=== PATIENT | female | born 1975 | race Caucasian/White ===

== ENCOUNTER 2016-06-26 02:58 | Inpatient (IN) ==
[2016-06-26] MEDS ORDERED: SOLU-MEDROL IV ONE (03:16)
[2016-06-26] MEDS ORDERED: LABETALOL IV ONE ×2 (03:16→04:29)
[2016-06-26] MEDS ORDERED: LABETALOL ONE (03:16)
[2016-06-26] MEDS ORDERED: ALBUTEROL NEB INH ONE ×2 (03:16→04:02)
[2016-06-26] MEDS ORDERED: DUONEB (A & A) INH ONE ×2 (03:16→04:02)
[2016-06-26 03:23] LABS: MANUAL DIFF NEEDED? NO
[2016-06-26 03:43] LABS: AGAP 16; ALBUMIN 4.4 g/dL (3.5-5.0); ALKALINE PHOSPHATASE 105 U/L (32-104); BUN 13 mg/dL (8-22); CALCIUM 9.2 mg/dL (8.8-10.2); CHLORIDE 98 mmol/L (98-107); CK PROFILE 22 U/L (24-173); COSMO 277; GOT 20 U/L (10-30); GPT 11 U/L (10-36); MAGNESIUM 2.3 mg/dL (1.5-2.7); POTASSIUM 3.8 mmol/L (3.5-5.1); SODIUM 136 mmol/L (136-145); TCO2 23 mmol/L (25-35); TOTAL BILIRUBIN < 0.15 mg/dL (0.20-1.00); TOTAL PROTEIN 8.1 g/dL (6.3-8.3)
[2016-06-26 03:51] LABS: BASO% 0.3 % (0.0-0.8); EOS# 0.26 X1000 (0.0-0.7); EOS% 2.2 % (0.0-10.0); HEMATOCRIT 38.3 % (37.0-47.0); HEMOGLOBIN 11.8 g/dL (12.0-16.0); IMM GRAN# 0.02 X1000 (0.0-0.04); IMM GRAN% 0.2 % (0.0-0.5); LYMPH# 2.67 X1000 (1.2-3.4); LYMPH% 22.9 % (20.5-51.1); MCH 24.2 PG (27-31); MCHC 30.8 g/dL (33-37); MCV 78.6 FL (81-99); MONO# 0.61 X1000 (0.11-0.59); MONO% 5.2 % (1.7-9.3); MPV 10.5 FL (7.4-10.4); NEUT% 69.2 % (42.2-75.2); PLT 334 X1000 (130-400); RBC 4.87 XMIL (4.2-5.4)
--- NOTE | 2016-06-26 03:53 | PROVIDER DOCUMENTATION ---
HPI-Respiratory General - General Chief Complaint: Shortness of Breath Stated Complaint: SOB Time Seen by Provider: 06/26/16 03:15 Source: patient Allergies/Adverse Reactions: Patient Allergies Allergy/AdvReac Type Severity Reaction Status Date / Time No Known Allergies Allergy Verified 06/26/16 03:06 Home Medications: Home Medication List Medication Instructions Recorded Confirmed Last Taken Type NK [No Home Medications] 06/26/16 06/26/16 Unknown History - History of Present Illness-Resp Nature of Presenting Problem: pt states that over the last sday or so she has become more SOB than usual. She is coughing but only minimally productive. No fever or chills. No chest pain or nausea. She smokes 2 PPD. Review of Systems - Adult - REVIEW OF SYSTEMS - ADULT Constitutional: reports: fatique. denies: chills, fever Eyes: denies: discharge Ears, Nose, Mouth & Throat: denies: ear pain, sinus problem, throat pain Cardiovascular: denies: chest pain, edema Respiratory: reports: cough, dyspnea on exertion, shortness of breath, wheezing . denies: hemoptysis, pleurisy Gastrointestinal: denies: abdominal pain, diarrhea, nausea, vomiting Genitourinary: denies: dysuria, frequency, flank pain Musculoskeletal: denies: back pain, neck pain Integumentary: denies: rash Neurological: denies: headache/migraines, numbness, paresthesia Psychiatric: reports: no symptoms reported Endocrine: reports: no symptoms reported Hematologic/Lymphatic: reports: no symptoms reported Allergic/Immunologic: reports: no symptoms reported All Other Systems: Reviewed and Negative Past History - Adult - PAST MEDICAL HISTORY-ADULT Review of Records: reports: Old Records Reviewed, Nursing Assessment Review, Medications Reviewed, Social history reviewed & non-contributory. Major Childhood Illnesses: reports: denies history Cardiovascular: reports: denies history Respiratory: reports: denies history Gastrointestinal: reports: denies history Obstetrical/Gynecological: reports: denies history Genitourinary: reports: denies history Musculoskeletal: reports: other fractures, orthopedic injury (previous broken left ankle and broken right arm) Neurological: reports: denies history Endocrine/Immune: reports: denies history Other Conditions: reports: denies history - PRIOR SURGERIES/PROCEDURES Surgical/Procedure History: reports: other (tubal ligation and repair of right ankle) - PRIOR HOSPITALIZATIONS Prior Hospitalizations: reports: none - IMMUNIZATION STATUS Childhood Immunizations: UTD Flu Vaccine: See Nurse Assessment - FAMILY HISTORY Family History: reviewed, not pertinent - SOCIAL HISTORY Smoking: greater than 1 pack/day Living Situation: family Physical Exam-General - PHYSICAL EXAM-ADULT Initial Vital Signs Reviewed: Yes - CONSTITUTIONAL General Appearance: alert, moderate distress (respiratory distress) - EYES Eyes: pink conjunctivae - HEAD, EARS, NOSE, MOUTH & THROAT HENMT: TMs normal, pharynx normal - NECK Neck: non-tender, full range of motion, supple, normal inspection. negative: lymphadenopathy - RESPIRATORY Respiratory: chest non-tender, no pleuratic chest pain, respiratory distress ( mild to moderate), decreased breath sounds, accessory muscle use, wheezing, increased rate. negative: lungs clear, normal breath sounds, no respiratory distress, no accessory muscle use, rales, rhonchi - CARDIOVASCULAR Cardiovascular: regular rate, rhythm, no edema, no gallop, no murmur - GASTROINTESTINAL (ABDOMEN) Abdominal Exam: normal bowel sounds, non tender, soft, no organomegaly, no pulsatile mass - MUSCULOSKELETAL Back Exam: normal inspection, no CVA tenderness, no vertebral tenderness Extremity: normal range of motion, non-tender, normal gait, normal inspection, no pedal edema, no calf tenderness - SKIN Integumentary: normal color, normal turgor, warm/dry - NEUROLOGIC Neurologic: grossly normal, no motor/sensory deficits - PSYCHIATRIC Psych/Mental Status: normal mood/affect, normal thought content, normal thought process, oriented x 3 Progress - PLAN OF CARE/RESULTS Progress/Plan/Lab Results: Vital Signs - 8 hr 06/26/16 03:09 06/26/16 03:25 06/26/16 03:36 Temperature 98 F Pulse Rate 112 H 97 H 93 H Respiratory Rate 17 24 18 Blood Pressure 218/151 194/119 O2 Sat by Pulse Oximetry 84 L 88 L 89 L Laboratory Results - last 24 hr 06/26/16 06/26/16 06/26/16 03:10 03:10 03:10 WBC RBC Hgb Hct MCV MCH MCHC RDW Std Deviation Plt Count MPV Immature Gran % (Auto) Neut % (Auto) Lymph % (Auto) Clark % (Auto) Eos % (Auto) Baso % (Auto) Immature Gran # (Auto) Neut # (Auto) Lymph # (Auto) Clark # (Auto) Eos # (Auto) Baso # (Auto) D-Dimer Specimen Type Sample Site pH pCO2 pO2 HCO3 Base Excess Oxyhemoglobin ABG O2 Sat (Calculated) ABG O2 Saturation ABG Carboxyhemoglobin ABG Methemoglobin Scott Test A-a O2 Difference Total Hemoglobin Lactate Liter Flow Blood Gas Modality FiO2 % Sodium 136 Potassium 3.8 Chloride 98 Carbon Dioxide 23 L Anion Gap 16 BUN 13 Creatinine 0.7 Estimated GFR/1.73 m2 > 60 BUN/Creatinine Ratio 19 Glucose 187 H Calculated Osmolality 277 Calcium 9.2 Magnesium 2.3 Total Bilirubin < 0.15 L AST 20 ALT 11 Alkaline Phosphatase 105 H Creatine Kinase 22 L Troponin T < 0.010 [id number]-Bdlmfooseut Pept 363 H Total Protein 8.1 Albumin 4.4 Globulin 4.0 Albumin/Globulin Ratio 1.0 06/26/16 06/26/16 06/26/16 03:10 03:10 03:39 WBC 11.67 H RBC 4.87 Hgb 11.8 L Hct 38.3 MCV 78.6 L MCH 24.2 L MCHC 30.8 L RDW Std Deviation 17.4 H Plt Count 334 MPV 10.5 H Immature Gran % (Auto) 0.2 Neut % (Auto) 69.2 Lymph % (Auto) 22.9 Clark % (Auto) 5.2 Eos % (Auto) 2.2 Baso % (Auto) 0.3 Immature Gran # (Auto) 0.02 Neut # (Auto) 8.07 H Lymph # (Auto) 2.67 Clark # (Auto) 0.61 H Eos # (Auto) 0.26 Baso # (Auto) 0.04 D-Dimer 0.34 Specimen Type ARTERIAL Sample Site L BRACHIAL pH 7.41 pCO2 38 pO2 51 L HCO3 24.3 Base Excess -0.4 Oxyhemoglobin 82.3 L* ABG O2 Sat (Calculated) 13.4 L ABG O2 Saturation 90.3 L ABG Carboxyhemoglobin 8.10 H* ABG Methemoglobin 0.9 Scott Test NO A-a O2 Difference 158.0 Total Hemoglobin 11.6 Lactate 2.10 Liter Flow 4.0 Blood Gas Modality CANNULA FiO2 % 36.0 Sodium Potassium Chloride Carbon Dioxide Anion Gap BUN Creatinine Estimated GFR/1.73 m2 BUN/Creatinine Ratio Glucose Calculated Osmolality Calcium Magnesium Total Bilirubin AST ALT Alkaline Phosphatase Creatine Kinase Troponin T [id number]-A-[id number] Pept Total Protein Albumin Globulin Albumin/Globulin Ratio Orders Category Date Time Status Oxygen Therapy- ED Nursing DIRECTED Care 06/26/16 03:10 Active Saline Loc NOW Care 06/26/16 03:10 Active CHEST-PORTABLE [RAD] Stat Exams 06/26/16 03:10 Taken ABG [RESP] Routine Lab 06/26/16 03:39 Completed CBC WITH DIFF [HEME] Stat Lab 06/26/16 03:10 Completed CK PROFILE [SP CHEM] Stat Lab 06/26/16 03:10 Completed COMPREHENSIVE METABOLIC PANEL [CHEM] Stat Lab 06/26/16 03:10 Completed Ddimer [D-DIMER PL] [COAG] Stat Lab 06/26/16 03:10 Completed MAGNESIUM [CHEM] Stat Lab 06/26/16 03:10 Completed PRO B-NATRIURETIC PEPTIDE Stat Lab 06/26/16 03:10 Completed TROPONIN T Stat Lab 06/26/16 03:10 Completed Albuterol 2.5MG/Ipratrop 0.5MG [Duoneb (A & A)] Med 06/26/16 03:16 Discontinued 3 ml INH NOW ONE Albuterol 2.5MG/Ipratrop 0.5MG [Duoneb (A & A)] Med 06/26/16 04:02 Discontinued 3 ml INH NOW ONE Albuterol [Albuterol Neb] Med 06/26/16 03:16 Discontinued 5 mg INH NOW ONE Albuterol [Albuterol Neb] Med 06/26/16 04:02 Discontinued 5 mg INH NOW ONE Labetalol Med 06/26/16 03:16 Discontinued 100 mg .ROUTE .STK-MED ONE Labetalol Med 06/26/16 03:16 Discontinued 100 mg IV NOW ONE Methylprednisolone Sod Succ [Solu-Medrol] Med 06/26/16 03:16 Discontinued 125 mg IV NOW ONE Aerosol Treatments Routine Oth 06/26/16 03:16 Completed Aerosol Treatments Routine Oth 06/26/16 04:02 Active Aerosol Treatments Stat Oth 06/26/16 03:16 Completed Aerosol Treatments Stat Oth 06/26/16 04:02 Active EKG [EKG] Stat Ther 06/26/16 03:18 Ordered Result Diagrams: 06/26/16 03:10 06/26/16 03:10 - EKG 1 Time of EKG reading by physician:: 03:20 EKG Interpretation (*Must complete 3 of following elements*): Abnormal Rate: 97 Rhythm: sinus [place]: normal QRS: LVH LA Interval: normal ST Wave: non-specific ST changes Prior EKG Comparison: no prior EKG - XRAY 1 XRAY Study: Chest Impression: Normal Departure - Departure Time of Disposition Decision: 04:12 DIAGNOSIS: COPD exacerbation, Accelerated hypertension Disposition: ADMITTED INPATIENT 09 Certified Medical Emergency: Emergent Condition: Fair Referrals and Follow-Ups: None,PCP [Primary Care Provider] -
[2016-06-26 03:58] LABS: BE -0.4 mmoll (-3.0-3.0); BLOOD TYPE ARTERIAL; DRAW SITE L BRACHIAL; METHB 0.9 % (0.0-1.5); O2(CT) 13.4 mL/dL (15.0-23.0); PCO2(98.6) 38 mmHg (35-45); PO2(98.6) 51 mmHg (60-100); SAMPLE BLOOD; SAO2 90.3 % (95.0-100.0); THB 11.6 g/dL (11.5-17.4); pH(98.6) 7.41 (7.35-7.45)
[2016-06-26 04:05] LABS: ALLEN TEST NO; MODALITY CANNULA
[2016-06-26] MEDS ORDERED: ROCEPHIN 1 GM/NS 1 GM/50 ML IVPB IV ONE (04:13)
[2016-06-26] MEDS ORDERED: MORPHINE IV ONE (04:57)
[2016-06-26] MEDS ORDERED: ZOFRAN IV ONE (04:58)
[2016-06-26] MEDS: DUONEB (A & A) INH SCH ×5 (07:22→23:06)
--- NOTE | 2016-06-26 10:00 | Diag Imaging Result Document ---
PROCEDURE NAME: CHEST-PORTABLE - 06/26/2016 PORTABLE CHEST: COMPARISON: 09/22/2015. FINDINGS: The lungs are well expanded. The heart is not enlarged. The vessels are not distended. Questionable basilar infiltrates. No pleural effusions identified. IMPRESSION: Questionable small basilar infiltrates. Followup PA and lateral recommended.
[2016-06-26] MEDS ORDERED: DUONEB (A & A) INH PRN (12:00)
[2016-06-26] MEDS: PRINIVIL PO SCH ×2 (13:10→21:14)
[2016-06-26] MEDS: TYLENOL PO PRN ×2 (13:19→21:14)
--- NOTE | 2016-06-26 14:41 | Diag Imaging Result Document ---
PROCEDURE NAME: CHEST-2 VIEWS - 06/26/2016 FRONTAL AND LATERAL CHEST, TWO VIEWS: COMPARISON: 06/26/2016. FINDINGS: The lungs are well expanded. Interval clearing of the increased markings in the lung bases on the prior exam consistent with atelectasis. No definite infiltrates. The heart remains borderline mildly prominent. No pleural effusions. IMPRESSION: Interval improvement with clearing in the lung bases.
[2016-06-26] MEDS ORDERED: DUONEB (A & A) INH SCH (15:30)
[2016-06-26] MEDS: SOLU-MEDROL IV SCH (16:33)
--- NOTE | 2016-06-26 18:51 | Diag Imaging Result Document ---
PROCEDURE NAME: HUMERUS-RIGHT - 06/26/2016 RIGHT HUMERUS, FIVE VIEWS: FINDINGS: There is deformity to the mid and distal shaft of the humerus. There is incomplete union from an old injury. The appearance is actually quite similar to that of the prior study of 05/26/2010. 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
[2016-06-26] MEDS: TORADOL PO PRN (21:15)
[2016-06-26] MEDS ORDERED: AYR NASAL SPRAY NAS PRN (21:15)
[2016-06-26] MEDS: ZOFRAN IV PRN (21:15)
[2016-06-27] MEDS: DUONEB (A & A) INH SCH ×3 (03:08→10:31)
[2016-06-27] MEDS: SOLU-MEDROL IV SCH (03:34)
[2016-06-27] MEDS: ZOFRAN IV PRN (03:34)
[2016-06-27] MEDS: TYLENOL PO PRN (03:35)
[2016-06-27] MEDS: TORADOL PO PRN (03:35)
[2016-06-27] MEDS ORDERED: ROCEPHIN 1 GM/NS 1 GM/50 ML IVPB IV SCH (04:00)
[2016-06-27 06:39] LABS: HEMATOCRIT 34.5 % (37.0-47.0); HEMOGLOBIN 10.6 g/dL (12.0-16.0); MCH 24.3 PG (27-31); MCHC 30.7 g/dL (33-37); MCV 79.1 FL (81-99); MPV 10.8 FL (7.4-10.4); RBC 4.36 XMIL (4.2-5.4)
[2016-06-27 06:47] LABS: AGAP 13; BUN 14 mg/dL (8-22); CALCIUM 8.7 mg/dL (8.8-10.2); CHLORIDE 101 mmol/L (98-107); COSMO 276; POTASSIUM 4.3 mmol/L (3.5-5.1); SODIUM 135 mmol/L (136-145); TCO2 21 mmol/L (25-35)
[2016-06-27] MEDS ORDERED: PRILOSEC PO SCH (07:00)
[2016-06-27 07:50] VITALS: BP 144/82
[2016-06-27] MEDS: PRINIVIL PO SCH (09:03)
--- NOTE | 2016-06-28 04:58 | DISCHARGE SUMMARY ---
ADMISSION DATE: 06/26/2016 DISCHARGE DATE: 06/27/2016 DISCHARGE DIAGNOSES: 1. Leukocytosis, likely secondary to steroids she was given in the emergency room. 2. Chronic obstructive pulmonary disease with mild exacerbation, resolved. 3. Chronic tobacco abuse. Again, discussed with patient the perils of smoking, as well as ways to stop. 4. Hypertensive urgency. Blood pressure 218/151 on admit, 144/82 on discharge. 5. 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 CONSULTATIONS: None. PROCEDURES: None. BRIEF HOSPITAL COURSE: The patient is a 41-year-old female, who was admitted as noted on the history of present illness, treated in the usual fashion. Placed on breathing treatments, oxygen. She was given 10 mg twice a day of lisinopril and her blood pressures improved dramatically down to 140 systolic. We will increase this to 20 mg twice a day at home. We will continue prednisone taper at home. We will place her on Bactrim due to its low cost at [facility] for the next 5 days. She will continue to follow with her primary care physician. TIME SPENT: Thirty-five minutes was spent in discharge planning and instructions. cc: Clint Yuen MD
--- NOTE | 2016-06-28 08:17 | EKG Report ---
Test Performed on : 06/26/2016 03:20:52 AM Test Reason : DYSPNEA, HTN, HYPOXIA, TACHYCARDIA Blood Pressure : / mmHG Vent. Rate : 097 BPM Atrial Rate : 097 BPM P-R Int : 186 ms QRS Dur : 080 ms QT Int : 392 ms P-R-T Axes : 053 -03 119 degrees QTc Int : 497 ms Normal sinus rhythm. Possible Left atrial enlargement Left ventricular hypertrophy with repolarization abnormality Cannot rule out Septal infarct (cited on or before 22-SEP-2015) Abnormal ECG When compared with ECG of 22-SEP-2015 12:23, Questionable change in initial forces of Septal leads T wave inversion now evident in Lateral leads Unconfirmed Result
--- NOTE | 2016-06-28 11:09 | HISTORY AND PHYSICAL ---
CHIEF COMPLAINT: Shortness of breath, onset 30 minutes prior to arrival. HISTORY OF PRESENT ILLNESS: This is a 41-year-old female with a history of 2 pack a day smoker who presented to the emergency room complaining of 30 minutes of shortness of breath along with a nonproductive cough. She denied fever, chills, chest pain, or nausea. Oxygen saturations were 84% on room air with a recheck of 88. She was placed on 4 L nasal cannula and saturations did increase to 97%-100%. A chest x-ray in the emergency room revealed questionable small basilar infiltrates. Repeat PA and lateral chest revealed interval improving with clearing in the lung bases. She was given 4 DuoNebs in the emergency room and stated that her shortness of breath resolved. She did have a blood pressure of 218/151 and 194/119 in the emergency room. She was given labetalol 100 mg x2 doses and pressures did increase to the 150s and 160s over 70s and 80s. She has been admitted for further evaluation and treatment. PAST MEDICAL HISTORY: ORIF of her right ankle prior to 2012, and fracture of right humerus 9 years ago. PAST SURGICAL HISTORY: ORIF of her right ankle, and excision of left breast abscess in 2016. SOCIAL HISTORY: She smokes 2 packs of cigarettes a day. She started at age 14. She denies alcohol or illicit drug use. ALLERGIES: No known drug allergies. HOME MEDICATIONS: None. REVIEW OF SYSTEMS: A 14 point review of systems was discussed with patient with pertinent positives being shortness of breath, dyspnea on exertion, and cough. She denied chest pain, palpitations, syncope, dizziness, PND, orthopnea, nausea, vomiting, diarrhea, constipation, black or bloody vomitus, black or bloody stools, hematuria, dysuria, frequency, urgency. PHYSICAL EXAMINATION: GENERAL: This is a 41-year-old female who is sitting up in the bed, in no distress. HEENT: Head is normocephalic, atraumatic. Pupils equal, round, react to light. EOMs are intact. Sclerae are anicteric. Mucous membranes are moist. NECK: Supple. Trachea midline. CARDIOVASCULAR: Regular rate and rhythm. S1 and S2 appreciated. PULMONARY: Breath sounds with wheezes scattered throughout with no increased work of breathing noted. GASTROINTESTINAL: Abdomen is soft, nontender, nondistended with bowel sounds in all 4 quadrants. BACK: No CVAT. No spine tenderness. MUSCULOSKELETAL: Good range of motion to joints. NEUROLOGIC: She is alert and oriented x3. EXTREMITIES: No clubbing, cyanosis, or edema. Calves are nontender. Pulses are palpable x4. SKIN: Warm and dry with no rashes or lesions noted. DIAGNOSTIC DATA: WBC is 11.6, with hemoglobin 11.8, hematocrit 38.3, and platelets of 334,000. Sodium is 136, potassium 3.8, BUN 13, creatinine 0.7, with a glucose of 187. Chest x-ray revealed interval clearing in the lung bases from x-ray 12 hours prior with lungs well expanded, no infiltrates. ASSESSMENT: 1. Chronic obstructive pulmonary disease exacerbation. 2. Shortness of breath, dyspnea on exertion. 3. Accelerated hypertension in a patient who has no prior hypertension diagnosis. 4. Chronic right arm pain. 5. Tobacco abuse. 6. Leukocytosis. 7. Hypoxemia. PLAN: The patient will be admitted to the hospital. We will continue her supplemental oxygen and wean as tolerated. DuoNebs q.4 hours and q.2 hours p.r.n. Steroids to taper. We will continue Rocephin 1 g every 24 hours. We will continue lisinopril 10 mg b.i.d. Blood pressures presently are in the 150s over 80s. We will x-ray her right arm. Further treatments pending hospital course. Dictated by SEBLE Beltran for Clint Yuen MD cc: SEBLE Beltran MD
== END 2016-06-27 03:20 | disposition home or self-care (01) ==
LOC: P.ED 02:58 → P.MEDSURG 06:30 → SUATTDRO 06:30
PROVIDERS: ATTEND Family Medicine